=== PATIENT | female | born 1985 | race Hispanic/Latino ===

== ENCOUNTER 2017-08-08 22:31 | Inpatient (IN) | payer OTHER ==
[2017-08-08 23:09] VITALS: BMI 30.5
[2017-08-08] MEDS ORDERED: Lactated Ringer's 1,000 ML IV SCH ×2 (23:30)
--- NOTE | 2017-08-08 23:46 | OBHP ---
Datetime: 08/08/2017 23:26 IP Adm Impression: Term, intrauterine ; No Active Labor; Ruptured Membranes IP Admit Plan: Admit to unit; Initiate labor protocol Admit Comment, IP Provider: 32 y.o. , LMP 11/15/16, LEO 08/22/17, EGA 38 weeks c/o leaking clear fluid as of 2145 hours. Denies VB or Ctx; was experiencing abdominal tightening a few days back, non e now. (+) AFM. Not sexually active "for a long time now". care: Dr. 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 Denies h/o STIs, fibroids, abnormal Pap or ovarian cysts PMH: denies PSH: denies Allergies: penicilin = rash No food allergy Meds: PNV - QD Soc Hx: prev tobacco, 1/2 ppd x 7 years; stopped at beginning of index . Recovering alcoh olic - sober x 2 years. Denies illicit drug use. Lives with FOB; together x 5 years. Works at [employer] Hx: Mother alive 67, possible HTN; emphysema. Father alive 69 - unclear cardiac disease P.E.: as above. WD in NAD. Awake, alert, oriented to time, person and place. Pleasant and coopera tive Assessment: 32 y.o. , 38 weeks, SROM; prolonged latent phase of labor (previous cerivcal exam 2 days ago = 1-2 cm). Category 1 tracing. GBS (-). D/W patient and FOB cervical ripeinng, followe d by piticin. Patient expressed an understanding and agrees; questions answered. Epidural for pain re lief also dsicussed - patient receptive. Patient is clinically stable. Plan: 1) Admit 2) NPO 3) Admission labs 4) Continuous EFM 5) Cytotec 50 micrograms p.o. x 1 6) Probable pitocin 7) Epidural upon request 8) Anticpate vaginal delivery - as per, and discussed with, Dr. Cortez Pelvic Type - PN: Adequate Extremities - PN: Normal Abdomen - PN: Normal Back - PN: Normal Breast - PN: Not Done Lungs - PN: Normal Heart - PN: Normal Thyroid - PN: Not Done Neurologic - PN: Normal HEENT - PN: Normal General - PN: Normal Weight - Estimated: 3292 Presentation-Admit: Vertex FHR - Baseline A Provider: 135 Contraction Comments Provider: irregular Comments, ACOG Physical Exam: Abdomen: Gravid, Soft, Non tender. Fundal height 36 cm Perineum: wet Sterile Spec exam: (+) pooling; (+) nitrazine All other systems reviewed and are negative Gestation - Est Wks by US: 38.0 IP Hx Assessment: The History has been Reviewed and is Current EGA AdmitDate IP: 38.1 Vital Signs Provider: Reviewed IP Indication for Induction: Not Applicable IP Chief Complaint: Suspected ruptured membranes NICHD Variability Prov Fetus A: Moderate 6-25bpm NICHD Accel Fetus A IP Provider: 15X15 FHR Category Provider Fetus A: Category I NICHD Decel Fetus A IP Provider: None Dilatation, Provider: 2-3 Effacement, Provider: 30 Station, Provider: -3 Genitourinary Exam: Normal DTRs - PN: Not Done
[2017-08-08 23:58] LABS: BASO % 0.2 % (0.0-2.0); EOS # 0.1 K/uL (0.0-0.7); EOS % 1.4 % (0.0-4.0); HEMOGLOBIN 12.5 g/dL (11.0-16.0); LYMPH # 2.7 K/uL (1.0-4.3); LYMPH % 28.3 % (20.0-40.0); MEAN CELL VOLUME 93.5 fL (81.0-99.0); MEAN CORPUSCULAR HEMOGLOBIN 32.2 pg (27.0-31.0); MEAN CORPUSCULAR HGB CONC 34.4 g/dL (33.0-37.0); MEAN PLATELET VOLUME 9.1 fL (7.2-11.7); NEUT # 5.5 K/uL (1.8-7.0); NEUT % 59.1 % (50.0-75.0); RBC 3.89 Mil/uL (3.80-5.20); RED CELL DISTRIBUTION WIDTH 14.1 % (11.5-14.5); WHITE BLOOD COUNT 9.4 K/uL (4.8-10.8)
[2017-08-09 00:01] LABS: SQUAMOUS EPITHIAL 2 /hpf (0-5); URINE BILIRUBIN NEGATIVE (NEGATIVE); URINE CLARITY Clear (Clear); URINE COLOR Colorless (YELLOW); URINE GLUCOSE (UA) NORMAL (Normal); URINE LEUKOCYTE ESTERASE NEG Leu/uL (Negative); URINE NITRATE NEGATIVE (NEGATIVE); URINE PROTEIN NEGATIVE (NEGATIVE); URINE UROBILINOGEN NORMAL mg/dL (0.2-1.0)
[2017-08-09 00:07] LABS: URINE BLOOD NEGATIVE (NEGATIVE)
[2017-08-09 00:13] LABS: ALBUMIN 3.4 g/dL (3.5-5.0); ALT/SGPT 32 U/L (9-52); AST/SGOT 24 U/L (14-36); BLOOD UREA NITROGEN 9 mg/dL (7-17); CALCIUM 8.9 mg/dl (8.6-10.4); GFR AFRICAN-AMERICAN > 60; GFR NON-AFRICAN AMERICAN > 60
[2017-08-09] MEDS ORDERED: Oxytocin 30 UNIT 30 UNITS/500 ML BAG IV PRN (03:45)
[2017-08-09] MEDS ORDERED: Oxytocin 30 UNIT 30 UNITS/500 ML BAG IV ONE (04:00)
[2017-08-09] MEDS ORDERED: Bupivacaine HCl/FentaNYL Cit 100 ML EPI ONE ×3 (06:03→17:04)
[2017-08-09] MEDS ORDERED: Oxytocin 20 units in LR 0 ML IV ONE (19:45)
[2017-08-09] MEDS ORDERED: Lidocaine 2% Inj (20ml) ONE (19:45)
--- NOTE | 2017-08-09 20:11 | OBPN ---
Datetime: 08/09/2017 20:03 IP Progress Impression: Normal progression of labor IP Informed Consent Obtain: Risks, Benefits and Alternatives Discussed IP Progress Plan: Continue present management; Anticipate Vaginal Delivery Membranes, Provider: Ruptured Contraction Comments Provider: q 2 FHR - Baseline A Provider: 160 Gestation - Est Wks by US: 38.1 IP Progress Note Comment: pt seen and examined and feels pressure s/ epidural VS PE 10/100/+2 EFM: 160/mod nic, variable decels with spontaneous return to baseline TOCO: q 2 min A/P @ 38.1 wks GA fully dilated iwth cat II -left lateral decubmic -oxgeyn -left lateral -d/c pitocin -pushing -possible operative vaginal Vital Signs Provider: Reviewed NICHD Variability Prov Fetus A: Moderate 6-25bpm Dilatation, Provider: 10 Effacement, Provider: 100 Station, Provider: 2 NICHD Decel Fetus A IP Provider: Variable Datetime: 08/08/2017 23:26 Weight - Estimated: 3292 Presentation-Admit: Vertex NICHD Accel Fetus A IP Provider: 15X15 FHR Category Provider Fetus A: Category I
[2017-08-09] MEDS ORDERED: Oxycodone/Acetaminophen 5/325 mg Tab PO PRN (21:24)
--- NOTE | 2017-08-09 21:24 | OBDS ---
DELIVERY PERSONNEL Delivery Doctor: Joyce Cortez MD Web Press Jogger: Diana Barker RN Anesthesiologist: Dr Espinoza Arbitrator: Dr Espinoza MATERNAL INFORMATION Delivery Anesthesia: Epidural Medications in Delivery: pitocin 30 units in 500 ml NACL Placenta Cultured: Yes Provider Comments: pt was fully dilated with non reassuring heart tracing, verbal consent give n for vacumn. vacumn applied , no cerical tissue, flexion point identified. pressure applied, 1 pull, head delivered in vira postin with compound left hand, atrumatically. vacumn related, atruatimc, speo tnous delivery of anteiroed followed by psoterior shoulder followed by delievery of the body. both or al and nasal passaes ov the baby werue baby bulb scutioned. umbilica cord clamped nad cut. baby humera d to mother on abomen with rn assistnace. hydraulic lift operator presnt for delivery. Spotnaoes delier of intac t placenta iwth memrnas. fundus firm. second degree perienal lacaetion noted and repaied with 2-0 and 3-0 chormic. good hemostiasis, no coplicaitns live femlae infnat agpsr 9,9 ewight of 7lbs 4 oucne ebl 300 ml LABOR SUMMARY EDC: 08/22/2017 00:00 No. Babies in Womb: 1 Attempted: No Labor Anesthesia: Epidural LABOR INFORMATION Reason for Induction: Not Applicable Onset of Labor: 08/09/2017 05:30 Complete Dilatation: 08/09/2017 19:19 Cervical Ripening Agents: Cytotec @ (Annotations: 50mcg PO) Oxytocin: Augmentation Group B Beta Strep: Negative Steroids Given: None Reason Steroids Not Administered: Not Applicable MEMBRANES Membranes Rupture Method: Spontaneous Rupture of Membranes: 08/08/2017 21:45 Length of Rupture (hrs): 23.15 Amniotic Fluid Color: Clear Amniotic Fluid Amount: Moderate Amniotic Fluid Odor: Normal STAGES OF LABOR Stage 1 hrs: 13 Stage 1 min: 49 Stage 2 hrs: 1 Stage 2 min: 35 Stage 3 hrs: 0 Stage 3 min: 15 Total Time in Labor hrs: 15 Total Time in Labor min: 39 VAGINAL DELIVERY Laceration Extension: Second Degree Laceration Type: Perineal Laceration Repair: Yes Initial Vag Sponge Count: 21 Final Vag Sponge Count: 21 Initial Vag Sharps Count: 3 Final Vag Sharps Count: 3 Sponge Count Correct: Yes BABY A INFORMATION Infant Delivery Date/Time: 08/09/2017 20:54 Method of Delivery: Vaginal Born in Route : No : N/A Forceps: N/A Vacuum Extraction: Successful Shoulder Dystocia : Yes ASSISTED DELIVERY BABY A Indication for Assisted Delivery: vacumn Catheter Prior to Procedure: Yes Position Vacuum/Forcep Apply: Left Occipital Anterior Vacuum Number of Pulls: 1 Vacuum Maximum Pressure Obtained: 40 Reduce Pressure btwn Ctx: No Vacuum Asw Specialist: Rich surgical Total Time Vacuum Applied: <1 minute Vacuum/Forceps Comment: no complicaoitns SHOULDER DYSTOCIA BABY A Delivery Date/Time: 08/09/2017 20:54 PRESENTATION/POSITION BABY A Presentation: Cephalic Cephalic Presentation: Vertex Vertex Position: Left Occipital Anterior-compound left hand Breech Presentation: N/A PLACENTA INFORMATION BABY A Placenta Delivery Time : 08/09/2017 21:09 Placenta Method of Delivery: Expressed Placenta Status: Delivered SCORES BABY A Heart Rate 1 min: >100 bpm Resp Effort 1 min: Good Cry Reflex Irritability 1 min: Cough or Sneeze or Pulls Away Muscle Tone 1 min: Active Motion Color 1 min: Body [place], Extremities Blue Resuscitation Effort 1 min: Tactile Stimulation SCORE 1 MIN: 9 Heart Rate 5 min: >100 bpm Resp Effort 5 min: Good Cry Reflex Irritability 5 min: Cough or Sneeze or Pulls Away Muscle Tone 5 min: Active Motion Color 5 min: Body [place], Extremities Blue Resuscitation Effort 5 min: N/A SCORE 5 MIN: 9 INFANT INFORMATION BABY A Gestational Age at Delivery: 38.1 Gestational Status: Term Outcome : Liveborn Condition : Stable Sex: Female IDENTIFICATION/MEDS BABY A ID Band Number: [id number] ID Band Location: Left Leg; Left Arm Sensor Applied: Yes Sensor Number: [id number] WEIGHT/LENGTH BABY A Infant Birthweight (gms): 3290 Infant Weight (lb): 7 Weight (oz): 4 Length Inches: 19.00 Length cms: 48.3 CORD INFORMATION BABY A No. Cord Vessels: 3 Nuchal Cord : N/A Cord Blood Taken: Yes Suction: Mouth; Nose
[2017-08-09] MEDS ORDERED: Oxytocin 30 UNIT 30 UNITS/500 ML BAG IV SCH (21:30)
[2017-08-09] MEDS ORDERED: Oxycodone/Acetaminophen 5/325 mg Tab ONE (22:05)
[2017-08-10] MEDS: Benzocaine/Menthol 20%-0.5% Topical Spray (60 ml) TOP PRN ×2 (00:34→12:11)
[2017-08-10 08:25] LABS: BASO # 0.1 K/uL (0.0-0.2); BASO % 0.4 % (0.0-2.0); EOS # 0.2 K/uL (0.0-0.7); EOS % 0.5 % (0.0-4.0); HEMOGLOBIN 12.4 g/dL (11.0-16.0); LYMPH # 2.5 K/uL (1.0-4.3); LYMPH % 8.8 % (20.0-40.0); MEAN CELL VOLUME 94.1 fL (81.0-99.0); MEAN CORPUSCULAR HEMOGLOBIN 31.4 pg (27.0-31.0); MEAN CORPUSCULAR HGB CONC 33.4 g/dL (33.0-37.0); MEAN PLATELET VOLUME 8.9 fL (7.2-11.7); MONO % 10.5 % (0.0-10.0); NEUT % 79.8 % (50.0-75.0); PLATELET COUNT 205 K/uL (130-400); RBC 3.95 Mil/uL (3.80-5.20); RED CELL DISTRIBUTION WIDTH 14.3 % (11.5-14.5); WHITE BLOOD COUNT 28.8 K/uL (4.8-10.8)
[2017-08-10 09:21] LABS: BANDS 6 % (0-2); LYMPHOCYTE 8 % (20-40); MONOCYTE 12 % (0-10); NEUTROPHIL 74 % (50-75); TOTAL CELLS COUNTED 100
[2017-08-10 09:22] LABS: PLATELET ESTIMATE NORMAL (NORMAL); TOXIC GRANULATION PRESENT
[2017-08-10] MEDS: Multiple Vitamins Tab PO SCH (12:09)
[2017-08-10] MEDS: Oxycodone/Acetaminophen 5/325 mg Tab PO PRN ×2 (12:15→18:30)
[2017-08-10 17:00] LABS: EOS # 0.3 K/uL (0.0-0.7); MONO # 2.2 K/uL (0.0-0.8)
[2017-08-10 17:10] LABS: BASO % 0.2 % (0.0-2.0); EOS % 1.3 % (0.0-4.0); HEMOGLOBIN 10.7 g/dL (11.0-16.0); LYMPH # 3.4 K/uL (1.0-4.3); LYMPH % 14.6 % (20.0-40.0); MEAN CELL VOLUME 94.1 fL (81.0-99.0); MEAN CORPUSCULAR HEMOGLOBIN 31.7 pg (27.0-31.0); MEAN CORPUSCULAR HGB CONC 33.6 g/dL (33.0-37.0); MEAN PLATELET VOLUME 9.1 fL (7.2-11.7); MONO % 9.7 % (0.0-10.0); NEUT # 17.2 K/uL (1.8-7.0); NEUT % 74.2 % (50.0-75.0); RBC 3.39 Mil/uL (3.80-5.20); RED CELL DISTRIBUTION WIDTH 14.2 % (11.5-14.5)
[2017-08-10 17:12] LABS: WHITE BLOOD COUNT 23.1 K/uL (4.8-10.8)
--- NOTE | 2017-08-10 18:01 | CP.PCM.PN ---
Subjective - Date & Time of Evaluation Date of Evaluation: 08/10/17 Time of Evaluation: 07:00 - Subjective Subjective: pt seen and examiend reprot pain cotorlle.d pt ambiating, boidng, passign flauts , no additon fever pt is bresat feedign deis nay feeling of sandess or dperssion. denies any lightheadns, dizzynes Objective - Vital Signs/Intake and Output Vital Signs (last 24 hours): Temp Pulse Resp BP Pulse Ox 97.4 F L 73 20 91/58 L 99 08/10/17 16:00 08/10/17 16:00 08/10/17 16:00 08/10/17 16:00 08/10/17 16:00 - Medications Medications: Current Medications Benzocaine/Menthol (Dermoplast 20%-0.5%) 0 ml TOP PRN PRN PRN Reason: Perineal Discomfort Last Admin: 08/10/17 12:11 Dose: 1 ml Docusate Sodium (Colace) 100 mg PO BID [facility] Last Admin: 08/10/17 12:09 Dose: 100 mg Lactated Ringer's (Lactated Ringer's) 1,000 mls @ 125 mls/hr IV .Q8H [facility] Last Admin: 08/08/17 23:15 Dose: 125 mls/hr Oxytocin (Pitocin) 30 units in 500 mls @ 2 mls/hr IV .Q24H PRN; Protocol; 0.002 UNIT/MIN PRN Reason: Labor Last Admin: 08/09/17 04:03 Dose: 2 mls/hr Oxytocin (Pitocin) 30 units in 500 mls @ 125 mls/hr IV .Q4H [facility] Clindamycin Phosphate 900 mg/ (Sodium Chloride) 56 mls @ 100 mls/hr IVPB Q8H [facility] Last Admin: 08/10/17 13:49 Dose: 100 mls/hr Gentamicin Sulfate 80 mg/ (Sodium Chloride) 102 mls @ 100 mls/hr IVPB Q8H [facility] Last Admin: 08/10/17 14:01 Dose: 100 mls/hr Ibuprofen (Motrin Tab) 600 mg PO Q6 PRN PRN Reason: Pain, Mild (1-3) Last Admin: 08/10/17 00:30 Dose: 600 mg Lactulose (Enulose) 10 gm PO DAILY [facility] Last Admin: 08/10/17 12:10 Dose: 10 gm Multivitamins (Hexavitamin) 1 tab PO DAILY [facility] Last Admin: 08/10/17 12:09 Dose: 1 tab Oxycodone/Acetaminophen (Percocet 5/325 Mg Tab) 1 tab PO Q4H PRN PRN Reason: Pain, moderate (4-7) Stop: 08/12/17 21:25 Last Admin: 08/10/17 12:15 Dose: 1 tab Oxycodone/Acetaminophen (Percocet 5/325 Mg Tab) 2 tab PO Q4H PRN PRN Reason: Pain, severe (8-10) Stop: 08/12/17 21:25 Last Admin: 08/09/17 22:04 Dose: 2 tab Sennosides (Senokot Tab) 17.2 mg PO DAILY [facility] Last Admin: 08/10/17 12:10 Dose: 17.2 mg - Labs Labs: 08/10/17 16:42 08/08/17 23:55 - Head Exam Head Exam: ATRAUMATIC, NORMAL INSPECTION - Eye Exam Eye Exam: EOMI Pupil Exam: PERRL - ENT Exam ENT Exam: Mucous Membranes Moist - Neck Exam Neck Exam: Normal Inspection - Respiratory Exam Respiratory Exam: Clear to Ausculation Bilateral, NORMAL BREATHING PATTERN - Cardiovascular Exam Cardiovascular Exam: REGULAR RHYTHM, +S1, +S2 - GI/Abdominal Exam GI & Abdominal Exam: Soft, Normal Bowel Sounds Additional comments: non tender, no guaridng Fundus;Firm, bleow leve of umbilcs, no uteirne tendere VE: moderate lochai, non foul smelling - Extremities Exam Extremities Exam: Full ROM, Normal Inspection Additional comments: negative carrie's sign Assessment and Plan (1) Vaginal delivery Assessment & Plan: s/p PPD #1 with endometritis -pain mangnet : peroceot /mtoirn -IV natiovs gent /clind x 24 hours -AM CBC -regualr diet -encoaurge brest feedign and ambujaiton Status: Acute (2) Endometritis Status: Acute
[2017-08-11] MEDS: Oxycodone/Acetaminophen 5/325 mg Tab PO PRN (07:56)
[2017-08-11 08:13] LABS: BASO % 0.3 % (0.0-2.0); EOS # 0.3 K/uL (0.0-0.7); EOS % 1.8 % (0.0-4.0); HEMOGLOBIN 11.5 g/dL (11.0-16.0); LYMPH # 2.7 K/uL (1.0-4.3); LYMPH % 15.8 % (20.0-40.0); MEAN CELL VOLUME 93.7 fL (81.0-99.0); MEAN CORPUSCULAR HGB CONC 34.2 g/dL (33.0-37.0); MEAN PLATELET VOLUME 9.2 fL (7.2-11.7); MONO # 1.2 K/uL (0.0-0.8); MONO % 6.9 % (0.0-10.0); NEUT # 12.9 K/uL (1.8-7.0); NEUT % 75.2 % (50.0-75.0); RBC 3.6 Mil/uL (3.80-5.20); RED CELL DISTRIBUTION WIDTH 14.7 % (11.5-14.5); WHITE BLOOD COUNT 17.1 K/uL (4.8-10.8)
[2017-08-11] MEDS: Multiple Vitamins Tab PO SCH (09:10)
[2017-08-11 11:25] LABS: BASO # 0.1 K/uL (0.0-0.2); BASO % 0.3 % (0.0-2.0); EOS # 0.3 K/uL (0.0-0.7); EOS % 1.7 % (0.0-4.0); HEMOGLOBIN 10.9 g/dL (11.0-16.0); LYMPH # 2.4 K/uL (1.0-4.3); LYMPH % 14.4 % (20.0-40.0); MEAN CELL VOLUME 93.7 fL (81.0-99.0); MEAN CORPUSCULAR HGB CONC 34.1 g/dL (33.0-37.0); MONO # 1.1 K/uL (0.0-0.8); MONO % 6.8 % (0.0-10.0); NEUT # 12.7 K/uL (1.8-7.0); NEUT % 76.8 % (50.0-75.0); RBC 3.42 Mil/uL (3.80-5.20); RED CELL DISTRIBUTION WIDTH 14.9 % (11.5-14.5); WHITE BLOOD COUNT 16.6 K/uL (4.8-10.8)
--- NOTE | 2017-08-11 13:39 | OBDCSUM ---
Datetime: 08/11/2017 13:37 Discharged to, Provider: Home Follow up at, Provider: Dr Cortez Disch Instr Activity: Normal activity Disch Instr Diet: Regular Discharge Instructions, Provider: Routine instructions given Discharge Diagnosis, Provider: Term Delivered Discharge Time: 08/11/2017 13:37 Follow up in weeks, Provider: 6 weeks Disch Referrals: None Contraception discussed, Prov: Yes Disch Activity Restrictions: No sexual activity; Nothing in vagina - [place], tampons, douche Discharge Comment, Provider: eliceo given Contraception after Delivery: Not Planning to Use
--- NOTE | 2017-08-11 13:39 | OBPPN ---
Datetime: 08/11/2017 13:36 PP Pain Prov: Within normal limits PP Nausea Prov: Denies PP Flatus Prov: Yes PP Breasts Prov: Normal PP Heart Prov: Normal PP Lungs Prov: Normal PP Abdomen/Uterus Prov: Normal PP Lochia Prov: Normal PP Vulva/Perineum Prov: Normal PP CVA Tenderness Prov: Normal PP Extremities Prov: Normal PP Progress Prov: Normal PP Impression Prov: Normal progression PP Plan Prov: Continue present management PP Progress Note Prov: pt see hira examienkeny rperot pian cotnrolle, ambitng, passinfg fluts, roelrat regular diet dneis afever, chills, aseu votming VSS PEsee above A?P s/p NVSD PPD #2 with endmeotriti , resovled -f/u repeat cbc -antics dc home -rto 6 week -preucaiton given
[2017-08-11 16:15] VITALS: PULSE 84; RESP 20; TEMP 97.7; O2SAT 99
[2017-08-12 01:59] VITALS: BP 107/65
== END 2017-08-11 21:30 | disposition home or self-care (01) | DRG 774 ==
LOC: C.EROB 22:31 → C.4D 23:08 → UNDOADMIN 23:08 → C.4D 23:24 → C.4M 08-09 23:45
PROVIDERS: ADMIT Obstetrics & Gynecology; ATTEND Obstetrics & Gynecology
PROC: 10D07Z6 Extraction of Products of Conception, Vacuum, Via Natural or Artificial Opening (ICD-10-PCS; principal; 2017-08-09)
PROC: 0KQM0ZZ Repair Perineum Muscle, Open Approach (ICD-10-PCS; 2017-08-09)
PROC: 3E0P7VZ Introduction of Hormone into Female Reproductive, Via Natural or Artificial Opening (ICD-10-PCS; 2017-08-09)
DX: O76 Abnormality in fetal heart rate and rhythm complicating labor and delivery (principal); O86.12 Endometritis following delivery; O63.9 Long labor, unspecified; O70.1 Second degree perineal laceration during delivery; Z3A.38 38 weeks gestation of pregnancy; Z37.0 Single live birth